=== PATIENT | female | born 1945 | race Caucasian/White ===

== ENCOUNTER 2020-12-22 05:31 | Inpatient (IN) | payer OTHER ==
[~2020-12-22] VITALS: Ht 162.6 cm; Wt 73.0 kg
--- NOTE | ~2020-12-22 | EMS ---
[address] [address] EMS Patient Care Report Name: BULMARO VARGAS Room #: REG LEBRON [place]#: [id number] Admission: 12/22/20 Attend Phys: Discharge: Date of : 45 Report #: [id number] THIS REPORT FOR: //name// Report Transmitted: 12/22/2020 06:03 EMS Care Summary [place], [place] Incident [id number] @ 12/22/2020 04:58 Incident Location [address] [place], [place] [id number] Patient BULMARO VARGAS Female, 75 Years 1945 Patient Address [address] [place], [place] [id number] Patient History Rheumatoid Arthritis, Patient Allergies Penicillin allergy, Patient Medications Unknown, Chief Complaint Choking sensation Disposition Transported No Lights/[place] Dispatch Reason Choking Transported To [facility] Narrative M36 dispatched on a choking. M36 arrived to home to find PT seated at dining room table. PT stated choking sensation as chief complaint. PT stated she felt like she "had a cold since Wednesday. but cannot take anything for it because of meds I am on." PT stated she had a productive cough since Wednesday. PT [address] [address] EMS Patient Care Report Name: BULMARO VARGAS Room #: REG ER [place]#: [id number] Admission: 12/22/20 Attend Phys: Discharge: Date of : 45 Report #: [id number] described mucous produced as white. PT spoke in complete sentences with increased work of breathing. PT stated she could not sleep due to her chest congestion. PT family on scene stated PT woke him up with coughing and choking sensation. PT ambulatory on scene. PT walked out of home to stretcher. PT sat on stretcher. PT secured with seatbelts. PT supplied with surgical mask. PT stated history of bronchial problems. PT denied being vaccinated for COViD. PT stated "I was afraid to get vaccinated and react badly and not be able to breath." PT vitals monitored during transport. PT report given. PT scooted self to hospital bed. PT care and belongings transferred to ER staff at [facility] with minor delay due to ER staffing. M36 placed back in service. Initial Vitals @05:13P: 77,R: 18,BP: 139/87,Pain: 0/10,GCS: 15,SpO2: 96,Revised Trauma: 12, @05:17P: 77,R: 14,BP: 113/87,Pain: 0/10,GCS: 15,SpO2: 98,Revised Trauma: 12, Impression Cough Procedures @05:10ALS AssessmentResponse: UnchangedSucceeded Timeline 04:57,Call Received 04:57,Dispatch Notified 04:58,Dispatched 05:02,En Route 05:03,On Scene 05:04,At Patient 05:10,ALS Assessment,Response: UnchangedSucceeded, 05:13,BP: 139/87 M,PULSE: 77,RR: 18 R,SPO2: 96 Ox,ETCO2: ,BG: ,PAIN: 0,GCS: 15, 05:14,Depart Scene 05:17,BP: 113/87 M,PULSE: 77,RR: 14 R,SPO2: 98 Ox,ETCO2: ,BG: ,PAIN: 0,GCS: 15, 05:20,At Destination 05:55,Call Closed Disclaimer v1.1 Copyright 2020 [employer] This EMS Care Summary contains data elements from the applicable legal record (which may be displayed differently). It is designed to provide pertinent information for the following purposes: continuity of care, clinical quality, and state data reporting. The complete legal record is available to ED staff and administrators of the receiving hospital in [employer] Patient Tracker. All data is provided "as is."
[2020-12-22 06:06] VITALS: BP 145/92
[2020-12-22] MEDS ORDERED: ASA81BEC PO (06:25)
[2020-12-22] MEDS ORDERED: PILOCARPINE OPHTHALMIC (06:25)
[2020-12-22] MEDS ORDERED: VITAMIN E1000 UNIT PO (06:25)
[2020-12-22 07:44] LABS: ABSOLUTE NEUTROPHILS 4.4 thou/uL (1.4-8.2); BASOPHILS 0.4 % (0.0-2.0); HEMATOCRIT 41.7 % (37.0-47.0); HEMOGLOBIN 13.7 gm/dL (12.0-15.0); LYMPHOCYTES 15.4 % (24.0-44.0); MCH 31.4 pg (26.0-34.0); MCHC 32.9 g/dL (28.0-37.0); MCV 95.5 fL (80.0-100.0); MONOCYTES 14.8 % (1.0-8.0); PLATELET COUNT 193 thou/uL (150-400); POLYS 68.4 % (36.0-66.0); RBC 4.36 mil/uL (4.20-5.00); RDW 13.8 % (10.5-14.5); WBC 6.4 thou/uL (4.0-11.0)
[2020-12-22 07:50] LABS: CALCIUM 8.7 mg/dL (8.5-10.1); CREATININE 0.8 mg/dL (0.6-1.0)
[2020-12-22 08:00] LABS: ALBUMIN 3.7 g/dL (3.4-5.0); TOTAL BILIRUBIN 0.5 mg/dL (0.2-1.0); TOTAL PROTEIN 6.8 g/dL (6.4-8.2)
--- NOTE | 2020-12-22 09:38 | EKG ---
[address] [place] [address] ELECTROCARDIOGRAM REPORT Name: BULMARO VARGAS Room #: 170-4 ADM IN ..#: [id number] Admission: 12/22/20 Attend Phys: Zulma Wheeler Discharge: Date of : 45 Report #: [id number] [facility] ED Test Date: 2020-12-22 Test Time: 06:44:26 Pat Name: BULMARO VARGAS Department: Room: 170 Gender: F Curriculum And Assessment Coordinator: MISTY : 1945 Requested By: Grayson Newton Order Number: [id number] MD: Jamir Zayas Measurements Intervals [place] Rate: 72 P: 50 OR: 139 QRS: -24 QRSD: 90 T: 23 QT: 428 QTc: 469 Interpretive Statements Sinus rhythm Ventricular premature complex Nonspecific ST and T wave abnormality No previous ECG available for comparison Electronically Signed On 12-22-2020 9:37:52 CDT by Jamir Zayas [email or web address] <ELECTRONICALLY SIGNED> By: Jamir Zayas MD, [facility] 12/22/20 [phone] Jamir Zayas MD, FACC /EPI
[2020-12-22 11:57] VITALS: BP 145/82
[2020-12-22 12:13] LABS: URINE BILIRUBIN NEGATIVE (Negative); URINE BLOOD TRACE (Negative); URINE CLARITY CLEAR; URINE COLOR YELLOW; URINE GLUCOSE-RANDOM* NEGATIVE (Negative); URINE KETONES NEGATIVE (Negative); URINE LEUKOCYTES-REFLEX NEGATIVE (Negative); URINE NITRITE-REFLEX NEGATIVE (Negative); URINE PROTEIN (DIPSTICK) NEGATIVE (Negative); URINE UROBILINOGEN 0.2 E.U./dl (0.2-1.0)
[2020-12-22 14:06] LABS: HEMATOCRIT 43.1 % (37.0-47.0); HEMOGLOBIN 14.2 gm/dL (12.0-15.0); MCH 31.1 pg (26.0-34.0); MCHC 32.9 g/dL (28.0-37.0); MCV 94.5 fL (80.0-100.0); RBC 4.56 mil/uL (4.20-5.00); RDW 13.7 % (10.5-14.5); WBC 5.6 thou/uL (4.0-11.0)
[2020-12-22 14:18] LABS: INR 1.04; PROTIME 11.3 Seconds (10.5-12.1)
[2020-12-22] MEDS ORDERED: VITAMIN D310 MC2 PO (14:18)
[2020-12-22] MEDS ORDERED: PILOCARPINE HCL5 M1 PO (14:19)
[2020-12-22] MEDS ORDERED: MOVE FREE JOIN1 EACH PO (14:20)
[2020-12-22 15:05] VITALS: BP 132/69
[2020-12-22 15:26] LABS: APTT 26.2 Seconds (24.5-32.8)
[2020-12-22 20:08] VITALS: BP 116/76
--- NOTE | 2020-12-23 03:26 | NUR ---
RECEIVED REPORT FROM ELENA GARCIA SHIFT RN.PT NPO EXCEPT MEDS.VERY ANXIOUS ABOUT HER PROCEDURE TOMORROW.MONITOR SHOWS SB,SR.POC CONTINUED.
[2020-12-23 03:55] VITALS: BP 108/72
[2020-12-23 03:56] LABS: CREATININE 0.7 mg/dL (0.6-1.0); POTASSIUM 3.3 mmol/L (3.5-5.1)
[2020-12-23 04:05] LABS: ALBUMIN 3.2 g/dL (3.4-5.0); PHOSPHORUS 2.8 mg/dL (2.5-4.9)
[2020-12-23 07:35] VITALS: BP 110/60
--- NOTE | 2020-12-23 07:46 | NUR ---
PT OFF UNIT TO HOSIERY LOOPER.
--- NOTE | 2020-12-23 09:06 | CATHLAB ---
[facility] [address] [address] [place] [address] INVASIVE PROCEDURE REPORT Name: BULMARO VARGAS Room #: 200-I ADM IN ..#: [id number] Admission: 12/22/20 Attend Phys: Zulma Anguiano Summer Discharge: Date of : 45 Report #: [id number] THIS REPORT FOR: cc: Erwin Vlilar MD, Neal A. MD Lundgren, Craig H. MD [facility] ~ APPROVED REPORT Study performed: 12/23/2020 07:19:39 Patient Details Patient Status: In-Patient Room #: 200 The patient is a 75 year-old female Event Personnel Jamir Zayas Mop Machine Operator, Tiny Hernandez RTR, SALES SOLUTIONS REPRESENTATIVE Monitor, Maryann Pike Ramos, Dexter RN black top roller Performed Art Access - R femoral artery* Left Heart Cath w/or w/o Coronaries [id number] [facility] Hemostasis w/ Mynx 00981 Initial Mod Sed Same Phys/QHP Gr5y 847597 58340 Mod Sed Same Phys/QHP Ea 710083 Indication Dyspnea Procedure Narrative The patient was brought electively to the Cardiac Catheterization Laboratory and was prepped and draped in a sterile manner. The Right Groin^ was infiltrated with 1% Lidocaine subcutaneous anesthesia. A PINNACLE 6FR Sheath #[id number] sheath was inserted into the RFA^. Coronary angiography was performed using coronary diagnostic catheters. The right coronary system was accessed and visualized with a JR4 catheter. The left coronary system was accessed and visualized with a JL4 catheter. The left ventricle was accessed and visualized with a ANGLED PIGTAIL catheter. Left ventricular/Aortic Valve gradient assessed via catheter pullback. Left ventriculogram was performed in 30 degree projection. Closure device was deployed with a 6 Fr MYNXGRIP 6/7F #[id number]. The patient tolerated the procedure well and there were no complications associated with the procedure. There was no hematoma. Intraoperative Conscious Sedation [facility] [address] [place] [address] INVASIVE PROCEDURE REPORT Name: VARGASBULMARO Room #: 200-I [facility] IN [facility].#: [id number] Admission: 12/22/20 Attend Phys: Zulma Lira Discharge: Date of : 45 Report #: [id number] Sedation start time: 08:14 Case end Time: 08:41 Fentanyl 50 mcg Versed 1 mg Fluoro Time: 1.30 minutes Dose: DAP 2342.20 cGycm2 335 mGy Contrast Type and Amount: Omnipaque 95 ml Coronary Angiography The patient's coronary anatomy is right dominant. Diagnostic Cath Left Main Normal left main LAD Normal left anterior descending Diagonal 1 Large normal bifurcating diagonal branch Circumflex Normal circumflex OM1 Normal OM1 OM2 Normal OM 2 Right Coronary Normal dominant right coronary R PDA Normal posterior descending RPLV Normal posterior lateral branch Left Ventriculography The left ventricle is mild to moderately dilated in size with abnormal contractility. The left ventricular ejection fraction is estimated to be 35%. Left ventricular wall motion abnormalities are present. There is no mitral insufficiency. Apical hypokinesis and ballooning consistent with Takotsubo cardiomyopathy. The best contractile function occurs at the base of the heart. Hemodynamics The aortic pressure is 111/41 mmHg with a mean of 70 mmHg. The left ventricular pressure is 116/6 mmHg with a mean of mmHg. The left ventricular end diastolic pressure is 33 mmHg. Conclusion 1. Moderate left ventricular dysfunction with apical ballooning and hypokinesis consistent with Takotsubo cardiomyopathy. EF 35% 2. Normal left main 3. Normal coronary vasculature. Right coronary dominant circulation [facility] [address] [place] [address] INVASIVE PROCEDURE REPORT Name: BULMARO VARGAS Room #: 200-I [facility] IN [facility].#: [id number] Admission: 12/22/20 Attend Phys: Zulma Lira Discharge: Date of : 45 Report #: [id number] Recommendations Aggressive Medical Therapy <ELECTRONICALLY SIGNED> By: Jamir Zayas MD, [facility] 12/23/20905 5 5 Jamir Zayas MD, FACC /INF
--- NOTE | 2020-12-23 09:14 | NUR ---
PT RETURN FROM FORKLIFT MECHANIC. ASSESS PT WITH DR. OLIVEIRA AND RIGHT GROIN CDI WITH NO HEMATOMA. PT DENIES PAIN OR SOA. FREQUENT ASSESSMENT ONE PN THE POST PROCEDURE FLOW SHEET. WILL CONTINUE TO ASSESS.
[2020-12-23 10:48] LABS: CHOLESTEROL 195 mg/dL (<200); HDL CHOLESTEROL 79 mg/dL (>40); LDL CHOLESTEROL 102 mg/dL (<100); TC:HDL 2.5 Ratio (Not establshd); TRIGLYCERIDE 74 mg/dL (<150); VLDL 15 mg/dL (<40)
--- NOTE | 2020-12-23 11:28 | 2DMMODE ---
[facility] [place] [address] 2 D/M-MODE ECHOCARDIOGRAM Name: BULMARO VARGAS Room #: 200-I ADM IN ..#: [id number] Admission: 12/22/20 Attend Phys: Zulma Wheeler Discharge: Date of : 45 Report #: [id number] THIS REPORT FOR: cc: Erwin Villar MD, Neal A. MD Lundgren, Craig H. MD [facility] ~ APPROVED REPORT Study performed: 12/23/2020 10:25:40 EXAM: Comprehensive 2D, Doppler, and color-flow Echocardiogram Patient Location: Bedside Room #: 200 Status: routine BSA: 1.76 HR: 66 bpm BP: 110/60 mmHg Rhythm: NSR Other Information Study Quality: Adequate Indications Cardiomyopathy. 2D Dimensions IVSd: 9.77 (7-11mm) LVOT Diam: 20.25 (18-24mm) LVDd: 45.01 mm PWd: 9.79 (7-11mm) Ascending Ao: 33.46 (22-36mm) LVDs: 28.47 (25-40mm) Left Atrium: 29.25 (27-40mm) Aortic Root: 32.14 mm Volumes Left Atrial Volume (Systole) Single Plane 4CH: 42.46 mL Single Plane 2CH: 51.75 mL LA ESV Index: 28.00 mL/m2 Aortic Valve AoV Peak Rufino.: 1.34 m/s AO Peak Gr.: 7.16 mmHg LVOT Max P.97 mmHg LVOT Max V: 0.86 m/s CHRIS Vmax: 2.[address] [facility] [address] [address] 2 D/M-MODE ECHOCARDIOGRAM Name: BULMARO VARGAS Room #: 200-I [facility] IN [facility]#: [id number] Admission: 12/22/20 Attend Phys: Zulma Anguiano May Discharge: Date of : 45 Report #: [id number] Mitral Valve E/A Ratio: 0.7 MV Decel. Time: 240.43 ms MV E Max Rufino.: 0.72 m/s MV A Rufino.: 1.01 m/s MV PHT: 69.73 ms IVRT: 89.97 ms Pulmonary Valve PV Peak Rufino.: 0.79 m/s PV Peak Gr.: 2.47 mmHg Pulmonary Vein P Vein S: 0.46 m/s P Vein A: 0.31 m/s P Vein D: 0.27 m/s P Vein A Dur.: 107.3 msec P Vein S/D Ratio: 1.70 Tricuspid Valve TR Peak Rufino.: 2.87 m/s RAP Estimate: 5.00 mmHg TR Peak Gr.: 33.00 mmHg PA Pressure: 38.00 mmHg Left Ventricle The left ventricle is normal size. There is normal left ventricular wall thickness. Left ventricular systolic function is moderately decreased. LVEF is 35%. Distal septal, anteroapical, and apical hypokinesis; mild apical ballooning suggestive of Takotsubo Mild diastolic dysfunction Right Ventricle The right ventricle is normal size. The right ventricular systolic function is normal. Atria Left atrium is mildly dilated. The right atrium size is normal. Aortic Valve The aortic valve is sclerotic. No aortic regurgitation is present. No aortic valvular stenosis. Mitral Valve The mitral valve is normal in structure. Mild mitral regurgitation. No evidence of mitral valve stenosis. Tricuspid Valve The tricuspid valve is normal in structure. Mild to moderate [facility] [address] [address] 2 D/M-MODE ECHOCARDIOGRAM Name: BULMARO VARGAS Micky Room #: 200-I [facility] IN [facility].#: [id number] Admission: 12/22/20 Attend Phys: Zulma Lira Discharge: Date of : 45 Report #: [id number] tricuspid regurgitation. Estimated PAP is 38mmHg. Pulmonic Valve The pulmonary valve is normal in structure. Trace pulmonic regurgitation. Great Vessels The aortic root is normal in size. The ascending aorta is normal in size. IVC is normal in size and collapses >50% with inspiration. Pericardium There is no pericardial effusion. <Conclusion> Left ventricular systolic function is moderately decreased. LVEF is 35% Distal septal, anteroapical, and apical hypokinesis; mild apical ballooning suggestive of Takotsubo Mild diastolic dysfunction The aortic valve is sclerotic. No aortic regurgitation or stenosis. The mitral valve is normal in structure. Mild mitral regurgitation. Mild to moderate tricuspid regurgitation. Estimated pulmonary artery pressure of 38mmHg. There is no pericardial effusion. <ELECTRONICALLY SIGNED> By: Jamir Zayas MD, FACC 12/23/20 1128 1128 1128 Jamir Zayas MD, FACC /INF
[2020-12-23 12:39] VITALS: BP 110/59
--- NOTE | 2020-12-23 14:48 | NUR ---
Met with patient who admits with pna/ resp distress. Patient resdies at home with spouse. Step dtr at bedside. Step dtr reports patient has number to be called for ride home. reviewed role of casemgt. 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 She reports no assistive device. she has supportive family. Plan home independently. [facility].
[2020-12-23 16:22] VITALS: BP 101/50
[2020-12-23 19:14] VITALS: BP 102/62
[2020-12-24 03:49] VITALS: BP 113/69
[2020-12-24 04:50] LABS: CALCIUM 8.7 mg/dL (8.5-10.1); CREATININE 0.7 mg/dL (0.6-1.0); MAGNESIUM 2.2 mg/dL (1.8-2.4); POTASSIUM 4.1 mmol/L (3.5-5.1)
[2020-12-24 07:00] VITALS: BP 118/66
--- NOTE | 2020-12-24 08:57 | NUR ---
RIGHT GROIN C/D/I. DENIES PAIN.NPO FOR EGD.MONITOR SHOWS SR.POC CONTINUED.
[2020-12-24 13:00] VITALS: BP 114/56
[2020-12-24] MEDS ORDERED: PROTONIX 20 MG20 M1 PO (14:34)
[2020-12-24] MEDS ORDERED: LEVOFLOXACIN500 MG PO (14:35)
[2020-12-24] MEDS ORDERED: COZAAR 25 MG TA25 M1 PO (14:36)
[2020-12-24] MEDS ORDERED: METOPROLOL SUCC25 M1 PO (14:36)
[2020-12-24] MEDS ORDERED: NASAL SPRAY30 M1 NASAL (14:36)
[2020-12-24 15:30] VITALS: BP 123/69
[2020-12-24 15:45] VITALS: BP 114/56
--- NOTE | 2020-12-24 18:46 | NUR ---
Assisted patient with calling her transportation company to transport her home
--- NOTE | 2020-12-26 15:07 | PATH ---
[facility] [address] [address] PATHOLOGY RPT PROCEDURE Name: SORAYA ETIENNE Room #: 200-I DIS IN M.R.#: [id number] Admission: 12/22/20 Date of : 45 Discharge: 12/24/20 Report #: [id number] Path Case #: [id number] [facility] Accession Number: [id number] . 01 Material submitted: . PART A: ANTRUM - BX ANTRUM R/O H. PYLORI PART B: esophagus - BX DISTAL ESOPHAGUS R/O EOE. Modifiers: distal PART C: esophagus - MID ESOPHAGUS R/O EOE. Modifiers: mid . 01 Clinical history: . EGD DYSPHAGIA ESOPHAGITIS STRICTURE HH GASTRITIS . 02 Diagnosis: A. Gastric mucosa, antrum, biopsy: - Focal mild active chronic gastritis. - H. pylori immunohistochemical stain is negative. . B. Squamous and gastric mucosa, distal esophagus, biopsy: - Mild reflux-like changes. - There is no evidence of eosinophilic esophagitis. - Negative for intestinal metaplasia. . C. Squamous epithelium, mid esophagus, biopsy: - Mild chronic inflammation and reactive changes. - There is no evidence of eosinophilic esophagitis. (SCA:shad; 12/26/2020) QMS 12/26/2020 1031 Local . 02 Electronically signed: . Fransico Mota DO, Pathologist NPI- [id number] . 01 Gross description: . A. The specimen is received in formalin, labeled "Soraya Etienne, VAIBHAV antrum". Received is a segment of pale sen tissue measuring 0.4 cm in maximum dimensions. The specimen is submitted entirely in cassette A1. . . B. The specimen is received in formalin, labeled "Soraya Etienne BX distal esophagus". Received are 2 segments of pale sen tissue ranging in size from 0.3 to 0.4 cm in maximum dimensions. The specimen is submitted entirely in cassette B1. . C. The specimen is received in formalin, labeled "Soraya Etienne BX mid esophagus". Received is a segment of pale sen tissue measuring 0.[address] [address] PATHOLOGY RPT PROCEDURE Name: SORAYA ETIENNE Room #: 200-I [facility] IN M.R.#: [id number] Admission: 12/22/20 Date of : 45 Discharge: 12/24/20 Report #: [id number] Path Case #: [id number] maximum dimensions. The specimen is submitted entirely in cassette C1.([facility]; 12/25/2020) [facility] 12/25/2020 1608 Local . 02 Pathologist provided ICD-10: K29.50, K20.90 . 02 CPT . 497259, 407355, 803817, W89475 Specimen Comment: A courtesy copy of this report has been sent to [phone], [phone] Specimen Comment: [id number], Specimen Comment: Report sent to , DR CAREY / DR POLK Performed at: 01 [facility] [address] [id number] MD Salvador Gotti MD Phone: [phone] Performed at: 02 [facility] [address] [id number] MD Stephen Dejesus MD Phone: [phone]
== END 2020-12-24 17:21 | disposition home or self-care (01) | DRG 280 ==
LOC: ER 05:31 → EROBS 09:03 → 2N 09:03 → 4W 12:14 → 2N 13:15
PROVIDERS: Emergency Medicine; Internal Medicine; Internal Medicine Cardiovascular Disease; ADMIT Hospitalist; ATTEND Hospitalist
PROC: B2111ZZ Fluoroscopy of Multiple Coronary Arteries using Low Osmolar Contrast (ICD-10-PCS; principal; 2020-12-23)
PROC: B2151ZZ Fluoroscopy of Left Heart using Low Osmolar Contrast (ICD-10-PCS; principal; 2020-12-23)
PROC: 4A023N7 Measurement of Cardiac Sampling and Pressure, Left Heart, Percutaneous Approach (ICD-10-PCS; principal; 2020-12-23)
PROC: 0DB68ZX Excision of Stomach, Via Natural or Artificial Opening Endoscopic, Diagnostic (ICD-10-PCS; 2020-12-24)
PROC: 0DB58ZX Excision of Esophagus, Via Natural or Artificial Opening Endoscopic, Diagnostic (ICD-10-PCS; 2020-12-24)
DX: I21.4 Non-ST elevation (NSTEMI) myocardial infarction (principal); J69.0 Pneumonitis due to inhalation of food and vomit; I50.21 Acute systolic (congestive) heart failure; I51.81 Takotsubo syndrome; K44.9 Diaphragmatic hernia without obstruction or gangrene; K21.00 Gastro-esophageal reflux disease with esophagitis, without bleeding; K29.70 Gastritis, unspecified, without bleeding; M35.00 Sjogren syndrome, unspecified; Z88.8 Allergy status to other drugs, medicaments and biological substances; R32 Unspecified urinary incontinence; M81.0 Age-related osteoporosis without current pathological fracture; E05.90 Thyrotoxicosis, unspecified without thyrotoxic crisis or storm; Z20.822 Contact with and (suspected) exposure to COVID-19
CPT/HCPCS: 10081; 62110; 62900; 70005

== ENCOUNTER → 2021-01-09 | Outpatient (CLI) | payer OTHER ==
[~2021-01-09] MED LIST: ASA81BEC PO; COZAAR 25 MG TA25 M1 PO; LEVOFLOXACIN500 MG PO; METOPROLOL SUCC25 M1 PO; MOVE FREE JOIN1 EACH PO; NASAL SPRAY30 M1 NASAL; PILOCARPINE HCL5 M1 PO; PILOCARPINE OPHTHALMIC; PROTONIX 20 MG20 M1 PO; VITAMIN D310 MC2 PO; VITAMIN E1000 UNIT PO
== END ==
LOC: SJCVC 15:08
PROVIDERS: ATTEND Internal Medicine Cardiovascular Disease
DX: R94.31 Abnormal electrocardiogram [ECG] [EKG] (principal); I51.81 Takotsubo syndrome; I42.8 Other cardiomyopathies; M35.00 Sjogren syndrome, unspecified; Z88.0 Allergy status to penicillin; Z79.82 Long term (current) use of aspirin; Z79.899 Other long term (current) drug therapy; Z72.89 Other problems related to lifestyle

== ENCOUNTER → 2021-02-07 | Outpatient (CLI) | payer OTHER | LOC: ULTRA 12:32 | PROVIDERS: ATTEND Nurse Practitioner | DX: I65.23 Occlusion and stenosis of bilateral carotid arteries (principal); H47.012 Ischemic optic neuropathy, left eye ==

== ENCOUNTER → 2021-03-25 | Outpatient (CLI) | payer OTHER | LOC: SJCVCIMAG 13:06 | PROVIDERS: ATTEND Internal Medicine Cardiovascular Disease | DX: I07.1 Rheumatic tricuspid insufficiency (principal); R94.31 Abnormal electrocardiogram [ECG] [EKG]; R00.1 Bradycardia, unspecified; Z88.0 Allergy status to penicillin; Z79.82 Long term (current) use of aspirin; Z79.899 Other long term (current) drug therapy; Z72.89 Other problems related to lifestyle ==